=== PATIENT | female | born 2000 | race Asian ===

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

== ENCOUNTER 2020-04-10 18:14 | Emergency (ER) | payer OTHER ==
[~2020-04-10] VITALS: Ht 172.7 cm; Wt 77.6 kg
--- NOTE | 2020-04-10 19:05 | NUR ---
pt to room from lobby
[2020-04-10 21:02] VITALS: BP 127/78
== END 2020-04-10 21:04 | disposition home or self-care (01) ==
LOC: ED 19:33
DX: B34.9 Viral infection, unspecified (principal); Z20.828 Contact with and (suspected) exposure to other viral communicable diseases; R00.0 Tachycardia, unspecified; G40.909 Epilepsy, unspecified, not intractable, without status epilepticus
CPT/HCPCS: 87081; 87635; 87880; 99283